=== PATIENT | male | born 1985 | race African-American/Black ===

== ENCOUNTER 2020-04-03 20:09 | Emergency (ER) | payer OTHER ==
[~2020-04-03] VITALS: Ht 172.7 cm; Wt 74.8 kg
--- NOTE | 2020-04-03 20:30 | NUR ---
ED Nurse Note: Recieved pt from home, awake alert and oriented x 4, pt here with c/o left hand / palm laceration for past 3 days, pt states injured on gate, has large lac noted, no bleeding, mild swelling, appears to have happend some days ago, pt denies pain, no recent tetanus, denies any other injuries or complaints. pt able to move extremity well and ll pulses are present.
[2020-04-03] MEDS ORDERED: Tetanus/Diptheria/Pertussis IM ONE (20:45)
[2020-04-03] MEDS ORDERED: Ketorolac 30mg Inj IM ONE (21:00)
[2020-04-03] MEDS ORDERED: Cephalexin 500mg cap ORAL ONE (21:00)
[2020-04-03] MEDS ORDERED: Lidocaine 1% Plain 30 ml INJ ONE ×2 (21:23→21:30)
--- NOTE | 2020-04-03 21:54 | Emergency Room Report ---
History of Present Illness General Chief Complaint: Laceration Source: Patient Present Illness HPI 34-year-old male with no symptom past medical history here complaining of a laceration left hand that occurred 3 days ago. Patient reports that he accidentally cut it with him metal pole. The laceration is already closing through secondary intention and appears to be infected. Denies any pain radiation. Rates the pain 5 out of 10. Has not taken medication for symptom relief. Has full range of motion of the affected side. Patient is neurovascularly intact. Patient is not up-to-date with tetanus shot and is requesting one today. Denies head injury and all other associated symptoms. Denies fever and chills. Allergies: Coded Allergies: No Known Allergies (Unverified , 04/03/20) COVID-19 Screening Contact w/high risk pt: No Experienced COVID-19 symptoms?: No COVID-19 Testing performed BUSINESS PROCESS COORDINATOR: No Patient History Past Medical History: see triage record Past Surgical History: none Pertinent Family History: none Immunizations: other - Tdap given today Reviewed Nursing Documentation: PMH: Agreed; PSxH: Agreed Nursing Documentation-PMH Past Medical History: No Stated History Review of Systems All Other Systems: negative except mentioned in HPI Physical Exam Vital Signs Date Time Temp Pulse Resp B/P (MAP) Pulse Ox O2 Delivery O2 Flow Rate FiO2 04/03/20 20:21 98.6 102 22 138/98 (111) 100 Room Air Sp02 EP Interpretation: reviewed, normal General Appearance: no apparent distress, alert, GCS 15, non-toxic Head: normocephalic, atraumatic Eyes: bilateral eye normal inspection, bilateral eye PERRL ENT: hearing grossly normal, normal pharynx, no angioedema, normal voice Neck: full range of motion, supple/symm/no masses Respiratory: chest non-tender, lungs clear, normal breath sounds, no rhonchi, speaking full sentences Cardiovascular #1: regular rate, rhythm, no edema Cardiovascular #2: 2+ radial (R), 2+ radial (L) Gastrointestinal: normal bowel sounds, non tender, soft, non-distended, no guarding, no rebound Rectal: deferred Genitourinary: no CVA tenderness Musculoskeletal: back normal, no calf tenderness, other - Deep laceration to the muscle left hand on the hyperthenar side Neurologic: alert, motor strength/tone normal, oriented x3, sensory intact, responsive, speech normal Psychiatric: judgement/insight normal, memory normal, mood/affect normal, no suicidal/homicidal ideation Skin: laceration - Left hand laceration deep into the muscle hyperthenar Lymphatic: no adenopathy Procedures Laceration/Wound Repair Laceration/Wound Repair : Consent: Verbal Wound Location: upper extremity - Left hand on the hyperthenar Wound's Depth, Shape: into muscle Wound Length (cm): 1 Wound Explored: contaminated Betadine Prep?: Yes Anesthesia: 1% Lidocaine Volume Anesthetic (ccs): 7 Wound Debrided: minimal Wound Repaired With: sutures Suture Size/Type: 4:0, proline Number of Sutures: 8 Layer Closure?: Yes Sterile Dressing Applied?: Yes Splint Applied?: No Sling Applied?: No Patient Tolerated: Well Complications: None Medical Decision Making PA Attestation All my diagnosis and treatment plans were reviewed ad discussed with my supervising physician Dr. Barrientos Diagnostic Impression: Primary Impression: Hand laceration ER Course 34-year-old male with no symptom past medical history here complaining of a laceration left hand that occurred 3 days ago. Patient reports that he accidentally cut it with him metal pole. The laceration is already closing through secondary intention and appears to be infected. Denies any pain radiation. Rates the pain 5 out of 10. Has not taken medication for symptom relief. Has full range of motion of the affected side. Patient is neurovascularly intact. Patient is not up-to-date with tetanus shot and is requesting one today. Denies head injury and all other associated symptoms. Denies fever and chills. Ddx considered but are not limited to : Superficial laceration, deep laceration , tendon involvement with laceration, laceration with foreign body Vital signs: are WNL, pt. is afebrile H&PE are most consistent with:hand laceration ORDERS: Left hand x-ray, Keflex, ibuprofen ED INTERVENTIONS: Tdap, wound closure and cleaning, first dose of Keflex p.o., Toradol DISCHARGE: At this time pt. is stable for d/c to home. Will provide printed patient care instructions, and any necessary prescriptions. Care plan and follow up instructions have been discussed with the patient prior to discharge. Take medication as directed, follow primary care provider, sutures to be removed in 5 to 7 days, if worsening symptoms return to the emergency room Other X-Ray Diagnostic Results Other X-Ray Diagnostic Results : X-Ray ordered: Left hand x-ray # of Views/Limited Vs Complete: 3 View Indication: Pain EP Interpretation: Yes PA Xray: Interpretation reviewed, by supervising MD, and agrees with findings. Interpretation: no dislocation, no soft tissue swelling, no fractures, other - No foreign body Impression: No acute disease Electronically Signed by: Rashida Sargent PA-C Last Vital Signs Date Time Temp Pulse Resp B/P (MAP) Pulse Ox O2 Delivery O2 Flow Rate FiO2 04/03/20 20:21 98.6 102 22 138/98 (111) 100 Room Air Disposition: HOME, SELF-CARE Condition: Stable Scripts Ibuprofen (Ibu) 800 Mg Tablet 800 MG PO TID, #30 TAB Prov: Rashida Wallis 04/03/20 Cephalexin* (KEFLEX*) 500 Mg Capsule 500 MG ORAL EVERY 6 HOURS for 7 Days, #28 CAP Prov: Rashida Wallis 04/03/20 Patient Instructions: Laceration Care, Adult Additional Instructions: Take medication as directed, follow-up with your primary care provider, sutures to be removed in 5 to 7 days, if worsening symptoms return to the emergency room Rashida Wallis Apr 03, 2020 21:54
[2020-04-03] MEDS ORDERED: IBU800 MG PO (21:55)
[2020-04-03] MEDS ORDERED: CEPHALEXIN500 MG ORAL (21:55)
[2020-04-03 22:00] VITALS: BP 146/81
[2020-04-03] MEDS ORDERED: Bacitracin Oint UD TOPIC ONE (22:00)
--- NOTE | 2020-04-03 22:00 | NUR ---
ER DISCHARGE NOTE: Patient is cleared to be discharged per ERMD, pt is aox4, on room air, with stable vital signs. pt was given dc and prescription instructions, pt was able to verbalize understanding, pt id band removed without complications. pt is able to ambulate with steady gait. pt took all belongings.
[2020-04-03 22:15] VITALS: BP 138/98
--- NOTE | 2020-04-04 13:22 | Diagnostic Imaging Report ---
Indication: Pain and trauma, laceration Technique: 3 views left hand Comparison: none Findings: There is a soft tissue defect in the posterior medial soft tissues of the wrist. Unusual appearing faint opacity deep to the laceration almost has the appearance of an area of faint trabeculated bone, but no osseous defect is demonstrated. No acute fractures. No dislocations. Impression: Evidence of laceration, possibly with an unusual foreign body deep to the laceration. Correlate with clinical findings
== END 2020-04-03 22:15 | disposition home or self-care (01) ==
LOC: EMR 20:20
DX: S61.412A Laceration without foreign body of left hand, initial encounter (principal); W45.8XXA Other foreign body or object entering through skin, initial encounter; Y93.9 Activity, unspecified; Y92.9 Unspecified place or not applicable
CPT/HCPCS: 12041; 73130; 90471; 90715; 96372; J1885; J2001; Z7502; 99283